=== PATIENT | female | born 1955 | race Caucasian/White ===

== ENCOUNTER 2021-02-07 13:19 | Emergency (ER) | payer MEDICARE ==
[~2021-02-07] VITALS: Ht 157.5 cm; Wt 76.2 kg
[2021-02-07] MEDS ORDERED: LISINOPRIL-HCT1 EACH PO (13:36)
[2021-02-07] MEDS ORDERED: METFORMIN HCL500 M3 PO (13:36)
[2021-02-07] MEDS ORDERED: TENORMIN25 MG PO (13:36)
[2021-02-07] MEDS ORDERED: ADVAIR 250-501 EACH INH (13:36)
[2021-02-07] MEDS ORDERED: PROAIR HFA8.5 GM INH (13:37)
[2021-02-07] MEDS ORDERED: ALBUTEROL2.5 MG/0.5 INH (13:37)
[2021-02-07 15:39] LABS: HEMATOCRIT 38.8 % (37.0-47.0); HEMOGLOBIN 13.4 gm/dL (12.0-15.0); MCH 32.3 pg (26.0-34.0); MCHC 34.4 g/dL (28.0-37.0); MCV 93.9 fL (80.0-100.0); MPV 8.8 fl. (7.2-11.1); NUCLEATED RBCS 0 /100WBC; PLATELET COUNT* 186 thou/uL (150-400); RBC 4.14 mil/uL (4.20-5.00); RDW-CV 14.6 % (10.5-14.5); WBC 10.7 thou/uL (4.0-11.0)
[2021-02-07 15:47] LABS: CALCIUM 9.1 mg/dL (8.5-10.1); CREATININE 0.9 mg/dL (0.6-1.3)
[2021-02-07 15:52] LABS: ALBUMIN 3.4 g/dL (3.4-5.0); TOTAL BILIRUBIN 0.2 mg/dL (<0.1-1.0)
[2021-02-07] MEDS ORDERED: VIBRAMYCIN 100100 M2 PO (16:03)
[2021-02-07] MEDS ORDERED: IPRAT-ALBUT 0.5-3 ML INH (16:03)
[2021-02-07] MEDS ORDERED: PREDNISONE 20 M20 M1 PO (16:03)
[2021-02-07 16:08] LABS: ABSOLUTE BASOPHILS 0.1 thou/uL (0.0-0.2); ABSOLUTE EOSINOPHILS 3.1 thou/uL (0.0-0.7); ABSOLUTE LYMPHOCYTES 0.7 thou/uL (0.8-5.3); ABSOLUTE MONOCYTES 0.3 thou/uL (0.0-1.2); ABSOLUTE NEUTROPHILS 6.4 thou/uL (1.6-8.1); PLATELET ESTIMATE ADEQUATE
[2021-02-07 16:39] VITALS: BP 122/64
--- NOTE | 2021-02-07 16:42 | EKG ---
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 : 1955 Requested By: Kimberlee Salmon Order Number: [id number] MD: Zeus Stallworth Measurements Intervals [place] Rate: 81 P: 66 IN: 166 QRS: 0 QRSD: 87 T: 42 QT: 372 QTc: 432 Interpretive Statements Sinus rhythm Low voltage, precordial leads No previous ECG available for comparison Electronically Signed On 02-07-2021 16:42:03 CDT by Zeus Stallworth [email or web address] <ELECTRONICALLY SIGNED> By: Zeus Stallworth MD, MERGED WITH [facility] 02/07/21 1642 1521 1521 Zeus Stallworth MD, MERGED WITH [facility] /EPI
[2021-02-07] MEDS ORDERED: ALBUTEROL2.5 MG/31 INH (16:56)
== END 2021-02-07 16:40 | disposition left against medical advice (07) ==
LOC: M.ERS 13:19
PROVIDERS: Physician Assistant
DX: J18.9 Pneumonia, unspecified organism (principal); Z20.822 Contact with and (suspected) exposure to COVID-19; I10 Essential (primary) hypertension; J45.909 Unspecified asthma, uncomplicated; E11.9 Type 2 diabetes mellitus without complications; Z79.899 Other long term (current) drug therapy; Z88.1 Allergy status to other antibiotic agents; Z88.8 Allergy status to other drugs, medicaments and biological substances